=== PATIENT | female | born 1960 | race Caucasian/White ===

== ENCOUNTER 2023-05-03 06:26 | Day surgery (SDC) | payer OTHER, SELFPAY ==
[2023-05-03] VITALS (8 sets, daily range): BP systolic 128–173; BP diastolic 73–104; BMI 32.5
[2023-05-03] MEDS: NORMOSOL-R 1000 IV (07:21)
== END 2023-05-03 11:05 | disposition home or self-care (01) ==
LOC: SDS 06:26
PROVIDERS: ATTENDING PHYSICIAN Otolaryngology
DX: J33.9 Nasal polyp, unspecified (principal); J32.8 Other chronic sinusitis; B49 Unspecified mycosis; J34.89 Other specified disorders of nose and nasal sinuses; J32.9 Chronic sinusitis, unspecified
CPT/HCPCS: 31237; 88304; 88311; 88312

== ENCOUNTER → 2023-07-28 08:18 | Outpatient (REF) | payer OTHER, SELFPAY | LOC: WDC 08:18 | PROVIDERS: ATTENDING PHYSICIAN Nurse Practitioner Adult Health; FAMILY PHYSICIAN Nurse Practitioner Adult Health | DX: Z12.31 Encounter for screening mammogram for malignant neoplasm of breast (principal) | CPT/HCPCS: 77063; 77067 ==

== ENCOUNTER → 2023-12-21 09:52 | Outpatient (REF) | payer OTHER, SELFPAY | LOC: HWRAD 09:52 | PROVIDERS: ATTENDING PHYSICIAN Nurse Practitioner Adult Health; FAMILY PHYSICIAN Internal Medicine; REFERRING PHYSICIAN Internal Medicine | DX: R10.2 Pelvic and perineal pain (principal) | CPT/HCPCS: 76830; 76856 ==

== ENCOUNTER → 2024-08-01 08:32 | Outpatient (REF) | payer OTHER, SELFPAY | LOC: WDC 08:32 | PROVIDERS: ATTENDING PHYSICIAN Nurse Practitioner Adult Health; FAMILY PHYSICIAN Internal Medicine Geriatric Medicine | DX: Z12.31 Encounter for screening mammogram for malignant neoplasm of breast (principal) | CPT/HCPCS: 77063; 77067 ==

== ENCOUNTER 2025-03-14 01:43 | Emergency (ER) | payer OTHER, SELFPAY ==
[2025-03-14 01:46] VITALS: BP 179/109
[2025-03-14 02:50] LABS: Urine Character Clear (Clear)
--- NOTE | 2025-03-14 03:09 | ED.GENMED ---
History of Present Illness
General
Chief Complaint: Flank Pain
Time Seen by Provider: 03/14/25 01:59
History of Present Illness
History of Present Illness:
64-year-old female presents to the emergency department for evaluation of right lower quadrant pain rating to the right flank that began abruptly this evening. This is associated with urinary urgency. She notes that during 1 bout of urination she
noted small abnormalities in the toilet bowl that look like seeds. Since that time her pain is improved and currently feels only minimal discomfort. No fevers, chills, sweats. Did report nausea but no bouts of pain which were colicky in nature.
Abdominal surgical history includes .
Past History
Past History
ED Past Medical History: Asthma and Hypothyroidism
ED Past Surgical History: and Other (Left breast surgery, Rhinoplasty)
Social History
Tobacco: Non-smoker
Alcohol: None
Personal:
Living: with family
Review of Systems
Review of Systems
Allergies reviewed?: Yes
All Other Systems: ROS reviewed and negative except as documented in HPI and ROS
Phy Exam
Physical Exam
Physical Exam:
GEN: Well appearing, NAD, WDWN
HEENT: Oral mucosa moist, no scleral icterus
Cardiac: Regular rate
Lung: No respiratory distress, no tachypnea
Abdomen: Soft, grossly nontender
MSK: No gross deformity or injuries
Skin: Good color, no pallor or jaundice, no rashes
Neuro: AO x3, moves all extremities freely
Psych: Calm, cooperative
Course
Orders/Labs/Results
Orders:
Orders
03/14/25 02:32
Urinalysis Reflex To Culture Urgent
Date Specimen was Collected: 03/14/25
Time Specimen was Collected: 02:26
Urine Microscopic Reflex Cult Urgent
03/14/25 03:19
CT Abd/pel Without Iv Or Oral Urgent
Comment:
Reason For Exam: R flank pain
03/14/25 04:24
Ketorolac [Toradol] 30 mg IM NOW STA
Abnormal Lab Results
03/14/25
02:32
Ur Occult Blood Reflex 4+ A
(Negative)
Urine Albumin (Reflex) 2+ A
(Neg - Trace)
Vital Signs
Initial and Last Documented VS:
Initial Vital Signs
Temp Pulse Resp BP Pulse Ox
97.7 F 85 16 179/109 100
03/14/25 01:46 03/14/25 01:46 03/14/25 01:46 03/14/25 01:46 03/14/25 01:46
Last Documented Vital Signs
Temp Pulse Resp BP Pulse Ox
97.7 F 85 18 179/109 100
03/14/25 01:46 03/14/25 01:46 03/14/25 02:00 03/14/25 01:46 03/14/25 03:11
MDM/Problems Addressed
MDM/Problems Addressed:
Most likely patient passed a kidney stone prior to arrival. Patient with plan to discharge she reported increased pain. Sent for imaging which confirmed suspicion of recently passed stone. With improvement in symptoms. No evidence for UTI.
*Pulse Oximetry
SaO2: 100
Oxygen Mode of Delivery: Room air
Patient hypoxic: no
*Critical Care Note
Total Time (30-74mins, 75-104mins- exclusive of procedures): Not Applicable
ED Attending Note
-
Portions of this chart may have been created with voice recognition software.� Occasional wrong word or��sound alike� substitutions may have occurred due to the inherent limitations of voice recognition software.
Discharge Plan
Departure
Patient Disposition: Home (Routine Discharge)
Date of Disposition: 03/14/25
Time of Disposition: 05:05
Patient with high blood pressure during this ER visit?: No
Discharge Problem:
Kidney stone
Instructions: Kidney Stones (DC)
Prescriptions:
No Action
liothyronine 5 mcg Tablet
5 mcg PO DAILY
levothyroxine [Synthroid] 112 mcg Tablet
112 mcg PO DAILY
Referrals:
Kushal Huynh CRNP [Family Provider, Internal Medicine]
Activity Restrictions/Additional Instructions:
Take 600mg ibuprofen every 6 hours if needed for pain
Drink plenty of fluids
Interventions
Interventions:
*Neglect/Abuse Screening Last Done: 03/14/25 01:46
*ED COVID-19 Vaccine History Last Done: 03/14/25 01:46
*ED Influenza Vaccine History Last Done: 03/14/25 01:46
[facility] Fall Risk Assessment Tool Last Done: 03/14/25 01:43
QA-Nmcqnj-Olicwvsftg Assessment Last Done: 03/14/25 03:45
ED-Female Genitourinary Assessment Last Done: 03/14/25 03:45
Discharge Date and Time
Print Language: KOSOVAN
[2025-03-14] MEDS: TORADOL 30 MG IM (04:34)
[2025-03-14 05:00] VITALS: BP 180/89
[2025-03-14 05:21] LABS: Urine Red Blood Cell 30-40 /HPF (0-2)
== END 2025-03-14 05:32 | disposition home or self-care (01) ==
LOC: EMR 01:43
PROVIDERS: Physician Assistant; EMERGENCY PHYSICIAN Student in an Organized Health Care Education/Training Program; FAMILY PHYSICIAN Nurse Practitioner Adult Health
DX: N13.2 Hydronephrosis with renal and ureteral calculous obstruction (principal); R10.A1 Flank pain, right side; E03.9 Hypothyroidism, unspecified; J45.909 Unspecified asthma, uncomplicated
CPT/HCPCS: 99284; 96374; 74176; 81003; 81015; 87086